=== PATIENT | male | born 1950 | race Caucasian/White ===

== ENCOUNTER 2017-04-24 12:41 | Day surgery (SDC) | payer OTHER ==
[~2017-04-24] VITALS: Ht 180.3 cm; Wt 105.0 kg
[~2017-04-24 12:41] MED LIST: ADVAIR 250/501 DISK IH; ADVAIR HFA120 INHALA IH; ADVIL200 MG PO; APRISO0.375 GM PO; ASPIR 8181 M1 PO; ATORVASTATIN CA80 MG PO; BISACODYL5 MG PO; BYSTOLIC10 MG PO; CARDIZEM CD180 MG PO; COLACE100 MG PO; COZAAR25 MG PO; CYANOCOBALAM1000 MCG PO; CYCLOBENZAPRINE5 MG PO; DOCUSATE SODIU100 MG PO; ELIQUIS5 MG PO; FLECAINIDE ACET50 MG PO; HYDROCHLOROTHIA25 MG PO; KLOR-CON M2020 MEQ PO; LIPITOR80 MG PO; LISINOPRIL5 MG PO; LO-DOSE ASPIRIN81 M2 PO; LOPRESSOR25 MG PO; LORAZEPAM0.5 MG PO; LOTREL 10/41 CAPSULE PO; MAG-AL PLUS SUS30 ML PO; MILK OF MAGNESI10 ML PO; NEXIUM40 MG PO; OXYCODONE HCL5 MG PO; PREDNISONE10 MG PO; SPIRIVA RESPIMAT4 GM IH; SPIRIVA1 INHALATI IH; VITAMIN B-12500 MC3 PO; ZETIA10 MG PO
[2017-04-24] MEDS ORDERED: KLOR-CON M2020 MEQ PO (12:57)
[2017-04-24] MEDS ORDERED: CARDIZEM CD,CA180 MG PO (12:59)
[2017-04-24] MEDS ORDERED: LOSARTAN POTAS100 MG PO (13:00)
[2017-04-24] MEDS ORDERED: INCRUSE ELLI62.5 MCG IH (13:04)
[2017-04-24] MEDS ORDERED: METAMUCIL0.4 GM PO (13:05)
[2017-04-24] MEDS ORDERED: VITAMIN D2000 UNI1 PO (13:06)
== END 2017-04-24 14:30 | disposition home or self-care (01) ==
LOC: CATH 12:41
PROC: 5A2204Z Restoration of Cardiac Rhythm, Single (ICD-10-PCS; principal; 2017-04-24)
DX: I48.1 Persistent atrial fibrillation (principal); I49.5 Sick sinus syndrome; I25.2 Old myocardial infarction; I25.10 Atherosclerotic heart disease of native coronary artery without angina pectoris; Z95.5 Presence of coronary angioplasty implant and graft; G47.33 Obstructive sleep apnea (adult) (pediatric); E78.2 Mixed hyperlipidemia; Z87.891 Personal history of nicotine dependence; Z82.49 Family history of ischemic heart disease and other diseases of the circulatory system; Z86.69 Personal history of other diseases of the nervous system and sense organs; Z79.82 Long term (current) use of aspirin; Z79.01 Long term (current) use of anticoagulants
CPT/HCPCS: 93005